=== PATIENT | male | born 1990 | race Caucasian/White ===

== ENCOUNTER 2017-10-06 10:53 | Emergency (ER) | payer OTHER ==
[~2017-10-06] VITALS: Ht 175.3 cm; Wt 74.8 kg
== END 2017-10-06 11:59 | disposition home or self-care (01) ==
LOC: ER 10:53
DX: S92.001A Unspecified fracture of right calcaneus, initial encounter for closed fracture (principal); F17.210 Nicotine dependence, cigarettes, uncomplicated; Z88.8 Allergy status to other drugs, medicaments and biological substances; W22.8XXA Striking against or struck by other objects, initial encounter; Y92.149 Unspecified place in prison as the place of occurrence of the external cause
CPT/HCPCS: 29515; 73630; 99283

== ENCOUNTER 2018-01-23 05:19 | Emergency (ER) | payer MEDICAID ==
[~2018-01-23] VITALS: Ht 175.3 cm; Wt 79.4 kg
== END 2018-01-23 05:46 | disposition home or self-care (01) ==
LOC: ER 05:19
DX: K29.70 Gastritis, unspecified, without bleeding (principal); F17.210 Nicotine dependence, cigarettes, uncomplicated; Z88.8 Allergy status to other drugs, medicaments and biological substances
CPT/HCPCS: 99282